=== PATIENT | female | born 1945 | race Caucasian/White ===

== ENCOUNTER 2020-05-27 11:50 | Inpatient (IN) | payer MEDICARE ==
[~2020-05-27] VITALS: Ht 149.9 cm; Wt 66.4 kg
[2020-05-27] MEDS ORDERED: ASPIRIN 81MG TABLET PO ONE (13:15)
[2020-05-27] MEDS: NITROGLYCERIN 0.4MG TABLET SL SL PRN ×2 (13:22→14:21)
[2020-05-27 13:58] LABS: BASOPHILS % 0.8 % (0.0-2.0); EOSINOPHILS % 2.1 % (0.0-5.0); HEMATOCRIT. 38.6 % (36.0-48.0); HEMOGLOBIN. 12.9 g/dL (12.0-16.0); LYMPHOCYTES % 38.6 % (20.0-50.0); MEAN CORPUSCULAR HEMOGLOBIN 30.4 pg (28.0-32.0); MEAN PLATELET VOLUME 9.4 fl (7.4-10.4); MONOCYTES % 8.2 % (2.0-8.0); NEUTROPHILS % 50.3 % (40.0-76.0); PLATELET 168 x1000/uL (130-400); RED BLOOD CELL COUNT 4.24 mill/uL (4.2-5.4); RED CELL DISTRIBUTION WIDTH 14.3 % (11.6-14.6)
[2020-05-27 14:00] LABS: CHLORIDE 109 mEq/L (98-107)
[2020-05-27] MEDS ORDERED: ENOXAPARIN 60MG/0.6ML SYR SUBCUT ONE (14:45)
[2020-05-27] MEDS: NITROGLYCERIN OINT 1GM/INCH UDPKT TD SCH ×2 (15:53→22:09)
[2020-05-27] MEDS ORDERED: IPRATROPIUM/ALBUTEROL 0.5-3(2.5)MG/3ML NEB NEB PRN (16:30)
[2020-05-27] MEDS ORDERED: HYDRALAZINE 20MG/ML VIAL IV PRN (16:30)
[2020-05-27] MEDS ORDERED: LORAZEPAM 2MG/ML CPJ IV PRN (16:30)
[2020-05-27] MEDS ORDERED: ONDANSETRON HCL 4MG/2ML INJ IV PRN (16:30)
[2020-05-27] MEDS ORDERED: DIPHENHYDRAMINE 50MG/ML VIAL IV PRN (16:30)
[2020-05-27] MEDS ORDERED: NICOTINE 7MG PATCH TD SCH (16:30)
[2020-05-27] MEDS ORDERED: MORPHINE SULFATE 2 MG/ML CPJ (NOT FOR IM USE) IV PRN (16:30)
[2020-05-27] MEDS: DEXT 5%/0.45% NACL 1000ML 1,000 ML IV SCH (16:33)
[2020-05-27] MEDS: NICOTINE 7MG PATCH TD SCH (17:00)
[2020-05-27] MEDS: FAMOTIDINE 20MG/2ML VIAL IV SCH (17:16)
[2020-05-27 19:25] LABS: CLARITY URINE CLOUDY (CLEAR); COLOR URINE YELLOW (YELLOW); KETONES URINE NEGATIVE (NEGATIVE); LEUKOCYTE ESTERASE URINE 1+ (NEGATIVE); NITRITE URINE NEGATIVE (NEGATIVE); OCCULT BLOOD URINE NEGATIVE (NEGATIVE); PROTEIN URINE NEGATIVE (NEGATIVE); SPECIFIC GRAVITY URINE 1.015 (1.005-1.030); UROBILINOGEN URINE 0.2 E.U./dL (0.2-1.0)
[2020-05-27 19:48] LABS: *AMPHETAMINES SCREEN URINE NEGATIVE (NEGATIVE); *BARBITURATES SCREEN URINE NEGATIVE (NEGATIVE)
[2020-05-27 19:49] LABS: D-DIMER 3.89 mg/L FEU (<0.50); PROTHROMBIN TIME 10.5 sec (9.6-11.0)
[2020-05-27 19:49] LABS: *BENZODIAZEPINES SCREEN URINE NEGATIVE (NEGATIVE); *COCAINE SCREEN URINE NEGATIVE (NEGATIVE); CANNABINOID URINE SCREEN NEGATIVE (NEGATIVE); METHADONE URINE SCREEN NEGATIVE (NEGATIVE); OPIATES URINE SCREEN NEGATIVE (NEGATIVE); PHENCYCLIDINE URINE SCREEN NEGATIVE (NEGATIVE)
[2020-05-27] MEDS ORDERED: ATORVASTATIN CALCIUM 40MG TABLET PO SCH (21:00)
[2020-05-27 21:15] VITALS: BP 128/52
[2020-05-27 21:18] VITALS: BP 128/52
[2020-05-27] MEDS ORDERED: NITROGLYCERIN 0.2MG/HR PATCH TOP SCH (22:00)
[2020-05-27] MEDS: ACETAMINOPHEN 650MG SUPP PR PRN (22:20)
[2020-05-28] VITALS: BP 101/46
[2020-05-28] MEDS ORDERED: NAPR-681 PO (01:25)
[2020-05-28] MEDS ORDERED: SERT25TA74 PO (01:25)
[2020-05-28] MEDS ORDERED: LISI10TA5 PO (01:27)
[2020-05-28] MEDS ORDERED: PRAV40TA58 PO (01:28)
[2020-05-28 04:00] VITALS: BP 98/50
[2020-05-28] MEDS: NITROGLYCERIN OINT 1GM/INCH UDPKT TD SCH ×2 (04:00→16:55)
[2020-05-28] MEDS: DEXT 5%/0.45% NACL 1000ML 1,000 ML IV SCH (05:46)
[2020-05-28 08:00] VITALS: BP 95/47
[2020-05-28] MEDS: ASPIRIN 81MG EC TABLET PO SCH (08:49)
[2020-05-28] MEDS: FAMOTIDINE 20MG/2ML VIAL IV SCH (08:49)
[2020-05-28] MEDS: NICOTINE 7MG PATCH TD SCH (08:49)
[2020-05-28] MEDS: ACETAMINOPHEN 650MG SUPP PR PRN (08:50)
[2020-05-28] MEDS ORDERED: ENOXAPARIN 40MG/0.4ML SYR SUBCUT SCH (09:00)
[2020-05-28] MEDS ORDERED: DEXT 5%/0.45% NACL 1000ML 1,000 ML IV SCH (09:00)
[2020-05-28 09:27] LABS: BASOPHILS % 0.7 % (0.0-2.0); EOSINOPHILS % 1.8 % (0.0-5.0); HEMATOCRIT. 34.1 % (36.0-48.0); HEMOGLOBIN. 11.6 g/dL (12.0-16.0); LYMPHOCYTES % 29.5 % (20.0-50.0); MEAN CORPUSCULAR HEMOGLOBIN 30.9 pg (28.0-32.0); MEAN PLATELET VOLUME 8.9 fl (7.4-10.4); MONOCYTES % 7.7 % (2.0-8.0); NEUTROPHILS % 60.3 % (40.0-76.0); PLATELET 150 x1000/uL (130-400); RED BLOOD CELL COUNT 3.75 mill/uL (4.2-5.4); RED CELL DISTRIBUTION WIDTH 14.8 % (11.6-14.6)
[2020-05-28 09:37] LABS: CHLORIDE 110 mEq/L (98-107)
[2020-05-28 09:44] LABS: LDL CHOLESTEROL 97 mg/dL (5-100)
[2020-05-28 09:45] LABS: HDL CHOLESTEROL 31 mg/dL (40-59)
[2020-05-28 09:46] LABS: T4 FREE 1.11 ng/dL (0.76-1.46)
[2020-05-28] MEDS: ENOXAPARIN 80MG/0.8ML SYR SUBCUT SCH ×2 (10:41→21:00)
[2020-05-28 12:00] VITALS: BP 98/46
[2020-05-28 16:00] VITALS: BP 100/45
[2020-05-28 20:19] VITALS: BP 117/64
[2020-05-28] MEDS: ATORVASTATIN CALCIUM 10MG TABLET PO SCH (21:06)
[2020-05-28] MEDS ORDERED: IOHEXOL-350 100 ML BOTTLE ONE (21:32)
[2020-05-29] VITALS (11 sets, daily range): BP systolic 99–153; BP diastolic 56–95
[2020-05-29] MEDS: NITROGLYCERIN OINT 1GM/INCH UDPKT TD SCH ×2 (04:49→15:40)
[2020-05-29 05:50] LABS: BASOPHILS % 0.8 % (0.0-2.0); CHLORIDE 109 mEq/L (98-107); EOSINOPHILS % 2.1 % (0.0-5.0); HEMATOCRIT. 35.2 % (36.0-48.0); HEMOGLOBIN. 11.9 g/dL (12.0-16.0); LYMPHOCYTES % 34.8 % (20.0-50.0); MEAN CORPUSCULAR HEMOGLOBIN 30.8 pg (28.0-32.0); MEAN CORPUSCULAR VOLUME 91.2 fL (81.0-99.0); MEAN PLATELET VOLUME 9.7 fl (7.4-10.4); MONOCYTES % 7.2 % (2.0-8.0); NEUTROPHILS % 55.1 % (40.0-76.0); PLATELET 138 x1000/uL (130-400); RED BLOOD CELL COUNT 3.86 mill/uL (4.2-5.4); RED CELL DISTRIBUTION WIDTH 14.3 % (11.6-14.6)
[2020-05-29] MEDS: ASPIRIN 81MG EC TABLET PO SCH (09:00)
[2020-05-29] MEDS: FAMOTIDINE 20MG/2ML VIAL IV SCH (09:24)
[2020-05-29] MEDS: NICOTINE 7MG PATCH TD SCH (09:25)
[2020-05-29] MEDS ORDERED: NITROGLYCERIN 50MCG/ML 10ML VIAL (CATH LAB) IV ONE (10:46)
[2020-05-29] MEDS ORDERED: PHENYLEPHRINE 100MCG/ML 10ML VIAL (CATH LAB) IV ONE (10:46)
[2020-05-29] MEDS ORDERED: HEPARIN SODIUM 1,000 UNIT/1ML VIAL IV ONE (10:46)
[2020-05-29] MEDS ORDERED: NICARDIPINE 100MCG/ML 10ML VIAL (CATH LAB) IV ONE (10:46)
[2020-05-29] MEDS ORDERED: LIDOCAINE HCL 1% 20ML VIAL (Pyxis) INJ ONE (12:09)
[2020-05-29] MEDS ORDERED: FENTANYL CITRATE/PF 50MCG/ML 2ML VIAL ONE ×2 (12:09→15:08)
[2020-05-29] MEDS ORDERED: MIDAZOLAM HCL 2 MG/2 ML VIAL ONE ×2 (12:09→15:00)
[2020-05-29] MEDS ORDERED: IODIXANOL 320MG/ML 100 ML BOTTLE IV ONE ×2 (12:10→15:03)
[2020-05-29] MEDS: DEXT 5%/0.45% NACL 1000ML 1,000 ML IV SCH ×2 (12:12→23:49)
[2020-05-29] MEDS ORDERED: CLOPIDOGREL 75MG TABLET ONE ×2 (15:01→15:21)
[2020-05-29] MEDS ORDERED: ASPIRIN 325MG EC TABLET PO ONE (15:02)
[2020-05-29] MEDS ORDERED: ATROPINE SULFATE 1MG/10ML SYR IV PRN (15:30)
[2020-05-29] MEDS ORDERED: ONDANSETRON HCL 4MG/2ML INJ IV PRN (15:30)
[2020-05-29] MEDS ORDERED: ACETAMINOPHEN 325MG TABLET PO PRN (15:30)
[2020-05-29] MEDS: ATORVASTATIN CALCIUM 10MG TABLET PO SCH (20:58)
[2020-05-29] MEDS: METOPROLOL TARTRATE 25MG TABLET PO SCH (20:59)
[2020-05-30] VITALS (10 sets, daily range): BP systolic 91–122; BP diastolic 42–70
[2020-05-30] MEDS: NITROGLYCERIN OINT 1GM/INCH UDPKT TD SCH ×2 (04:33→16:00)
[2020-05-30 07:05] LABS: CHLORIDE 109 mEq/L (98-107)
[2020-05-30 07:21] LABS: BASOPHILS % 0.8 % (0.0-2.0); EOSINOPHILS % 1.9 % (0.0-5.0); HEMATOCRIT. 34.6 % (36.0-48.0); HEMOGLOBIN. 11.5 g/dL (12.0-16.0); LYMPHOCYTES % 24.8 % (20.0-50.0); MEAN CORPUSCULAR HEMOGLOBIN 30.6 pg (28.0-32.0); MEAN CORPUSCULAR VOLUME 91.7 fL (81.0-99.0); MEAN PLATELET VOLUME 9.4 fl (7.4-10.4); MONOCYTES % 7.6 % (2.0-8.0); NEUTROPHILS % 64.9 % (40.0-76.0); PLATELET 143 x1000/uL (130-400); RED BLOOD CELL COUNT 3.77 mill/uL (4.2-5.4); RED CELL DISTRIBUTION WIDTH 14.6 % (11.6-14.6)
[2020-05-30] MEDS ORDERED: ASPIRIN 325MG TABLET PO SCH (09:00)
[2020-05-30] MEDS ORDERED: CLOPIDOGREL 75MG TABLET PO SCH (09:00)
[2020-05-30] MEDS: METOPROLOL TARTRATE 25MG TABLET PO SCH (09:01)
[2020-05-30] MEDS: ASPIRIN 81MG EC TABLET PO SCH (09:01)
[2020-05-30] MEDS: FAMOTIDINE 20MG/2ML VIAL IV SCH (09:01)
[2020-05-30] MEDS: NICOTINE 7MG PATCH TD SCH (09:01)
[2020-05-30] MEDS ORDERED: CLOP75TA4 MT (11:33)
[2020-05-30] MEDS ORDERED: NICO-645 TD (11:33)
[2020-05-30] MEDS ORDERED: METO25TA6 PO (11:33)
[2020-05-30] MEDS ORDERED: ASPI-1497 MT (11:33)
[2020-05-30] MEDS: DEXT 5%/0.45% NACL 1000ML 1,000 ML IV SCH (12:00)
== END 2020-05-30 15:31 | disposition home or self-care (01) | DRG 247 ==
LOC: ER 11:50 → 7WST 16:12 → SUPCPDRO 16:21 → ENRESERV 19:51 → 8WST 05-28 22:30 → 3WST 05-29 15:32
PROVIDERS: ADMIT Internal Medicine; ATTEND Internal Medicine
PROC: 027035Z Dilation of Coronary Artery, One Artery with Two Drug-eluting Intraluminal Devices, Percutaneous Approach (ICD-10-PCS; principal; 2020-05-29)
PROC: 4A023N7 Measurement of Cardiac Sampling and Pressure, Left Heart, Percutaneous Approach (ICD-10-PCS; 2020-05-29)
PROC: B2111ZZ Fluoroscopy of Multiple Coronary Arteries using Low Osmolar Contrast (ICD-10-PCS; 2020-05-29)
PROC: B2151ZZ Fluoroscopy of Left Heart using Low Osmolar Contrast (ICD-10-PCS; 2020-05-29)
DX: I21.4 Non-ST elevation (NSTEMI) myocardial infarction (principal); J84.9 Interstitial pulmonary disease, unspecified; I25.110 Atherosclerotic heart disease of native coronary artery with unstable angina pectoris; E78.5 Hyperlipidemia, unspecified; E86.0 Dehydration; F32.9 Major depressive disorder, single episode, unspecified; F17.210 Nicotine dependence, cigarettes, uncomplicated; R73.9 Hyperglycemia, unspecified; M81.0 Age-related osteoporosis without current pathological fracture; Z20.828 Contact with and (suspected) exposure to other viral communicable diseases; I10 Essential (primary) hypertension; E78.00 Pure hypercholesterolemia, unspecified; Z79.02 Long term (current) use of antithrombotics/antiplatelets; Z79.899 Other long term (current) drug therapy; Z95.5 Presence of coronary angioplasty implant and graft
CPT/HCPCS: 36415; 71045; 71275; 80048; 80053; 80061; 80305; 81003; 83036; 83880; 84439; 84443; 84484; 85025; 85347; 85379; 86850; 86900; 92928; 93005; 93306; 93458; 93970; 96374; 99291; C1760; C1769; C1874; C1887; C1893; J1644; J1650; J2250; J2270; J2370; J3010; J3490; Q9967; U0003-CS

== ENCOUNTER 2022-10-05 12:12 | Inpatient (IN) | payer MEDICARE ==
[~2022-10-05] VITALS: Ht 149.9 cm; Wt 65.5 kg
[~2022-10-05 12:12] MED LIST: ASPI-1497 MT; CLOP-31 MT; METO25TA6 PO; NICO-645 TD; PRAV40TA58 PO; SERT25TA74 PO
[2022-10-05] MEDS ORDERED: ASPIRIN 81MG TABLET PO ONE (12:45)
[2022-10-05 13:03] LABS: BASOPHILS % 0.3 % (0.0-2.0); EOSINOPHILS % 0.8 % (0.0-5.0); HEMATOCRIT. 33.2 % (36.0-48.0); HEMOGLOBIN. 11.1 g/dL (12.0-16.0); LYMPHOCYTES % 17.7 % (20.0-50.0); MEAN CORPUSCULAR HEMOGLOBIN 30.9 pg (28.0-32.0); MEAN CORPUSCULAR VOLUME 92.1 fL (81.0-99.0); MEAN PLATELET VOLUME 8.5 fl (7.4-10.4); MONOCYTES % 4.8 % (2.0-8.0); NEUTROPHILS % 76.4 % (40.0-76.0); PLATELET 117 x1000/uL (130-400); RED BLOOD CELL COUNT 3.61 mill/uL (4.2-5.4); RED CELL DISTRIBUTION WIDTH 14.5 % (11.6-14.6)
[2022-10-05 13:11] LABS: D-DIMER 3.13 mg/L FEU (<0.50); INR 1.1; PARTIAL THROMBOPLASTIN TIME 32.2 sec (23.4-31.0); PROTHROMBIN TIME 11.4 sec (9.6-11.0)
[2022-10-05 13:12] LABS: CHLORIDE 106 mEq/L (98-107)
[2022-10-05] MEDS ORDERED: POTASSIUM CHLORIDE 20MEQ TABLET SR PO ONE (13:45)
[2022-10-05] MEDS ORDERED: AZITHROMYCIN 500MG/250ML 250 ML IV ONE (14:00)
[2022-10-05] MEDS ORDERED: OSELTAMIVIR 75MG CAPSULE PO ONE (14:00)
[2022-10-05] MEDS ORDERED: CEFTRIAXONE 1 G PREMIX 50 ML IV ONE (14:00)
[2022-10-05] MEDS ORDERED: FUROSEMIDE 20MG/2ML VIAL IVP ONE (16:00)
[2022-10-05 16:22] LABS: CLARITY URINE CLEAR (CLEAR); COLOR URINE YELLOW (YELLOW); KETONES URINE NEGATIVE (NEGATIVE); LEUKOCYTE ESTERASE URINE 1+ (NEGATIVE); NITRITE URINE NEGATIVE (NEGATIVE); OCCULT BLOOD URINE NEGATIVE (NEGATIVE); PH URINE 5.5 (4.5-8.0); PROTEIN URINE 1+ (NEGATIVE)
[2022-10-05] MEDS ORDERED: ACETAMINOPHEN 325MG TABLET PO ONE (21:00)
[2022-10-06 09:30] VITALS: BP 118/47
[2022-10-06] MEDS ORDERED: IPRATROPIUM/ALBUTEROL 0.5-3(2.5)MG/3ML NEB HHN PRN (10:15)
[2022-10-06] MEDS ORDERED: ONDANSETRON HCL 4MG/2ML INJ IV PRN (10:15)
[2022-10-06] MEDS ORDERED: CLONIDINE 0.1MG TABLET PO PRN (10:15)
[2022-10-06] MEDS ORDERED: ACETAMINOPHEN 325MG TABLET PO PRN (10:15)
[2022-10-06] MEDS ORDERED: ATOR20TA65 PO (10:23)
[2022-10-06] MEDS ORDERED: MELO-104 PO (10:23)
[2022-10-06] MEDS ORDERED: LISI10TA26 PO (10:23)
[2022-10-06 10:25] LABS: BG BASE EXCESS -0.7 mmol/L (-2.0-2.0); BG DEOXYHEMOGLOBIN 3.3 % (0.0-5.0); BG FRACTION INSPIRED OXYGEN 28; BG HCO3 ACT 23.8 mmol/L (22.0-26.0); BG METHEMOGLOBIN 0.2 % (0.0-1.5); BG OXYGEN SATURATION 96.7 % (92.0-98.5); BG OXYHEMOGLOBIN 96.5 % (94.0-97.0); BG PCO2 38.6 mmHg (35.0-45.0); BG PH 7.407 (7.350-7.450); BG PO2 87.6 mmHg (75.0-100.0); BG SAMPLE SITE LEFT BRACHIAL; BG TOTAL HEMOGLOBIN 11.3 g/dL (12.0-18.0); BG VENT MODE NASAL CANNULA
[2022-10-06] MEDS ORDERED: *PATIENT'S OWN MEDICATION STORAGE XX SCH (10:30)
[2022-10-06 12:00] VITALS: BP 134/53
[2022-10-06] MEDS: ENOXAPARIN 40MG/0.4ML SYR SUBCUT SCH (12:36)
[2022-10-06] MEDS: ASPIRIN 81MG TABLET PO SCH (12:36)
[2022-10-06] MEDS: LEVOFLOXACIN 500MG PREMIX 100 ML IV SCH (12:36)
[2022-10-06] MEDS: PREDNISONE 20MG TABLET PO SCH (12:37)
[2022-10-06] MEDS: DOCUSATE SODIUM 100MG CAPSULE PO SCH ×2 (12:37→17:14)
[2022-10-06 16:00] VITALS: BP 100/53
[2022-10-06 18:41] LABS: CREATINE KINASE MB FRACTION 2.2 ng/mL (0.5-3.6)
[2022-10-06 20:00] VITALS: BP 113/49
[2022-10-07] VITALS: BP 124/52
[2022-10-07 00:54] LABS: CREATINE KINASE MB FRACTION 1.8 ng/mL (0.5-3.6)
[2022-10-07 04:00] VITALS: BP 102/53
[2022-10-07 07:00] LABS: BASOPHILS % 0.2 % (0.0-2.0); EOSINOPHILS % 0.1 % (0.0-5.0); HEMOGLOBIN. 11.6 g/dL (12.0-16.0); LYMPHOCYTES % 12.7 % (20.0-50.0); MEAN CORPUSCULAR HEMOGLOBIN 30.8 pg (28.0-32.0); MEAN CORPUSCULAR VOLUME 90.3 fL (81.0-99.0); MEAN PLATELET VOLUME 8.8 fl (7.4-10.4); MONOCYTES % 7.1 % (2.0-8.0); NEUTROPHILS % 79.9 % (40.0-76.0); PLATELET 144 x1000/uL (130-400); RED BLOOD CELL COUNT 3.77 mill/uL (4.2-5.4); RED CELL DISTRIBUTION WIDTH 14.7 % (11.6-14.6)
[2022-10-07 08:00] VITALS: BP 142/63
[2022-10-07] MEDS: PREDNISONE 20MG TABLET PO SCH (08:13)
[2022-10-07] MEDS: DOCUSATE SODIUM 100MG CAPSULE PO SCH ×2 (08:13→16:07)
[2022-10-07] MEDS: ASPIRIN 81MG TABLET PO SCH (08:13)
[2022-10-07] MEDS: ENOXAPARIN 40MG/0.4ML SYR SUBCUT SCH (08:14)
[2022-10-07 08:24] LABS: CHLORIDE 108 mEq/L (98-107)
[2022-10-07] MEDS: LEVOFLOXACIN 500MG PREMIX 100 ML IV SCH (11:00)
[2022-10-07 12:00] VITALS: BP 131/50
[2022-10-07] MEDS: METHYLPREDNISOLONE SOD SUCC 40 MG/ML VIAL IV SCH ×2 (13:53→22:02)
[2022-10-07 15:19] LABS: BG BASE EXCESS 1.2 mmol/L (-2.0-2.0); BG CARBOXYHEMOGLOBIN 0.3 % (0.5-1.5); BG DEOXYHEMOGLOBIN 6.8 % (0.0-5.0); BG FRACTION INSPIRED OXYGEN 21; BG HCO3 ACT 25.6 mmol/L (22.0-26.0); BG METHEMOGLOBIN 0.1 % (0.0-1.5); BG OXYGEN SATURATION 93.2 % (92.0-98.5); BG OXYHEMOGLOBIN 92.8 % (94.0-97.0); BG PCO2 39.9 mmHg (35.0-45.0); BG PH 7.425 (7.350-7.450); BG PO2 67.6 mmHg (75.0-100.0); BG SAMPLE SITE LEFT RADIAL; BG TOTAL HEMOGLOBIN 12.1 g/dL (12.0-18.0); BG VENT MODE ROOM AIR
[2022-10-07 16:00] VITALS: BP 146/65
[2022-10-07 20:00] VITALS: BP 142/65
[2022-10-08] VITALS: BP 129/50
[2022-10-08 04:00] VITALS: BP 127/68
[2022-10-08 08:00] VITALS: BP 120/49
[2022-10-08] MEDS: ASPIRIN 81MG TABLET PO SCH (09:41)
[2022-10-08] MEDS: DOCUSATE SODIUM 100MG CAPSULE PO SCH (09:41)
[2022-10-08] MEDS: METHYLPREDNISOLONE SOD SUCC 40 MG/ML VIAL IV SCH (09:41)
[2022-10-08] MEDS: ENOXAPARIN 40MG/0.4ML SYR SUBCUT SCH (09:42)
[2022-10-08] MEDS ORDERED: LEVOFLOXACIN 250MG PREMIX 50 ML IV SCH (11:00)
[2022-10-08 12:00] VITALS: BP 110/50
[2022-10-08] MEDS ORDERED: LACTULOSE 20G/30ML UDC PO NR (14:00)
[2022-10-08 16:00] VITALS: BP 130/60
[2022-10-08 17:54] VITALS: BP 134/53
== END 2022-10-08 18:40 | disposition home or self-care (01) | DRG 190 ==
LOC: ER 12:42 → 8WST 15:55
PROVIDERS: ADMIT Internal Medicine; ATTEND Internal Medicine
DX: J44.1 Chronic obstructive pulmonary disease with (acute) exacerbation (principal); J96.00 Acute respiratory failure, unspecified whether with hypoxia or hypercapnia; E44.0 Moderate protein-calorie malnutrition; D64.9 Anemia, unspecified; D69.6 Thrombocytopenia, unspecified; I10 Essential (primary) hypertension; I25.10 Atherosclerotic heart disease of native coronary artery without angina pectoris; J06.9 Acute upper respiratory infection, unspecified; I51.7 Cardiomegaly; E78.00 Pure hypercholesterolemia, unspecified; E78.5 Hyperlipidemia, unspecified; Z20.822 Contact with and (suspected) exposure to COVID-19; E87.6 Hypokalemia; Z68.29 Body mass index [BMI] 29.0-29.9, adult; I25.2 Old myocardial infarction; Z90.49 Acquired absence of other specified parts of digestive tract
CPT/HCPCS: 36415; 36600; 71045; 71275; 80048; 80053; 81003; 82375; 82553; 82805; 83605; 83880; 84484; 85025; 85379; 87426; 87804; 93970; 99291; C9803; J0456; J0696; J1650; J1940; J1956; J2920; J7512

== ENCOUNTER 2023-10-11 12:40 | Emergency (ER) | payer MEDICARE ==
[~2023-10-11] VITALS: Ht 154.9 cm; Wt 73.0 kg
[~2023-10-11 12:40] MED LIST changes: +ATOR20TA65 PO; +LISI10TA26 PO; +MELO-104 PO
[2023-10-11 12:49] VITALS: O2SAT 96
[2023-10-11] MEDS ORDERED: SODIUM CHLORIDE 0.9% 1,000 ML IV ONE (13:15)
[2023-10-11 14:01] LABS: BASOPHILS % 0.5 % (0.0-2.0); EOSINOPHILS % 0.6 % (0.0-5.0); HEMATOCRIT. 33.6 % (36.0-48.0); HEMOGLOBIN. 11.3 g/dL (12.0-16.0); LYMPHOCYTES % 15.1 % (20.0-50.0); MEAN CORPUSCULAR HEMOGLOBIN 30.3 pg (28.0-32.0); MEAN CORPUSCULAR HGB CONC 33.7 g/dL (31.0-37.0); MEAN PLATELET VOLUME 8.2 fl (7.4-10.4); MONOCYTES % 11.5 % (2.0-8.0); NEUTROPHILS % 72.3 % (40.0-76.0); PLATELET 113 x1000/uL (130-400); RED BLOOD CELL COUNT 3.73 mill/uL (4.2-5.4); RED CELL DISTRIBUTION WIDTH 14.9 % (11.6-14.6); WHITE BLOOD COUNT 3.7 x1000/uL (4.5-11.0)
[2023-10-11 14:18] LABS: ALANINE AMINOTRANSFERASE 14 IU/L (10-49); ASPARTATE AMINOTRANSFERASE 22 IU/L (<34); BILIRUBIN TOTAL 0.4 mg/dL (0.1-1.0); CALCIUM 9.1 mg/dL (8.7-10.4); CARBON DIOXIDE 28 mEq/L (21-32); CHLORIDE 108 mEq/L (98-107); CREATININE 1.1 mg/dL (0.6-1.0); GLUCOSE 118 mg/dL (70-105); POTASSIUM 4.5 mEq/L (3.5-5.1); PROTEIN TOTAL 6.9 g/dL (6.0-8.3); SODIUM 142 mEq/L (136-145); UREA NITROGEN BLOOD 16 mg/dL (9-23)
[2023-10-11 14:49] LABS: TROPONIN I HIGH SENSITIVITY < 4 ng/L (3.0-34)
[2023-10-11 15:19] VITALS: TEMP 99.4
[2023-10-11] MEDS ORDERED: NIRM1TAB PO (17:31)
[2023-10-11 20:12] VITALS: BP 125/81; PULSE 79; RESP 17
== END 2023-10-11 20:12 | disposition home or self-care (01) ==
LOC: ER 13:04
DX: R55 Syncope and collapse (principal); R53.1 Weakness; R42 Dizziness and giddiness; E78.00 Pure hypercholesterolemia, unspecified; I10 Essential (primary) hypertension; I25.2 Old myocardial infarction; Z79.899 Other long term (current) drug therapy
CPT/HCPCS: 99285; 96360; 71045; 80053; 85025; 84484; 36415; 93005; J7030

== ENCOUNTER 2024-03-31 20:11 | Emergency (ER) | payer MEDICARE ==
[~2024-03-31] VITALS: Ht 154.9 cm; Wt 64.0 kg
[~2024-03-31 20:11] MED LIST changes: +NIRM1TAB PO
[2024-03-31 20:27] VITALS: BP 120/50; TEMP 98.6; O2SAT 99
[2024-03-31 20:29] VITALS: PULSE 65; RESP 20
[2024-03-31] MEDS ORDERED: ACET-2708 MT (23:52)
== END 2024-04-01 00:25 | disposition home or self-care (01) ==
LOC: ER 20:11
DX: S90.31XA Contusion of right foot, initial encounter (principal); E78.00 Pure hypercholesterolemia, unspecified; I10 Essential (primary) hypertension; I25.2 Old myocardial infarction; J44.9 Chronic obstructive pulmonary disease, unspecified; X58.XXXA Exposure to other specified factors, initial encounter; Y93.89 Activity, other specified; Y92.89 Other specified places as the place of occurrence of the external cause; Y99.8 Other external cause status
CPT/HCPCS: 29515; 73630; 99283